=== PATIENT | female | born 1950 | race Caucasian/White ===

== ENCOUNTER 2022-07-13 22:07 | Emergency (ER) | payer OTHER, MEDICARE ==
[~2022-07-13] VITALS: Ht 167.6 cm; Wt 55.8 kg
[2022-07-13 22:12] VITALS: BP_SYST 141
--- NOTE | 2022-07-13 22:31 | NUR ---
Patient to ER bed 3 to gown for evaluation. Side rails up.
--- NOTE | 2022-07-13 22:56 | NUR ---
JORGE Romero at bedside examining patient.
[2022-07-13] MEDS ORDERED: AUG875 PO (22:59)
[2022-07-13] MEDS ORDERED: AMOXICILLIN/POTASSIUM CLAV 875 MG TABLET PO ONE (23:00)
--- NOTE | 2022-07-13 23:22 | NUR ---
Patient given written and verbal discharge instructions and verbalizes understanding. ER MD BRYANT discussed with patient the results and treatment provided. Patient in stable condition. ID arm band removed. IV catheter removed intact and dressing applied, no active bleeding. Rx of AUGMENTIN given. Patient educated on pain management and to follow up with PMD. Pain Scale0. Opportunity for questions provided and answered. Medication side effect fact sheet provided.
== END 2022-07-13 23:16 | disposition home or self-care (01) ==
LOC: SED 22:07
DX: S61.250A Open bite of right index finger without damage to nail, initial encounter (principal); Z79.899 Other long term (current) drug therapy; W54.0XXA Bitten by dog, initial encounter; Y93.89 Activity, other specified; Y92.89 Other specified places as the place of occurrence of the external cause; Y99.8 Other external cause status
CPT/HCPCS: 99283